=== PATIENT | female | born 1955 | race Caucasian/White ===

== ENCOUNTER 2019-03-30 14:13 | Emergency (ER) | payer OTHER ==
[~2019-03-30] VITALS: Ht 165.1 cm; Wt 60.8 kg
[2019-03-30] MEDS ORDERED: Synthroid88 MCG PO (15:19)
[2019-03-30] MEDS ORDERED: BUPR75 PO (15:19)
[2019-03-30] MEDS ORDERED: Prozac20 MG PO (15:19)
[2019-03-30] MEDS ORDERED: FERSU90EL (15:20)
[2019-03-30] MEDS ORDERED: METF500 PO (15:20)
[2019-03-30] MEDS ORDERED: Amaryl1 MG (15:20)
[2019-03-30] MEDS ORDERED: Ultram50 MG PO (16:15)
== END 2019-03-30 16:28 | disposition home or self-care (01) ==
LOC: ER 14:13
DX: S09.90XA Unspecified injury of head, initial encounter (principal); S16.1XXA Strain of muscle, fascia and tendon at neck level, initial encounter; S39.012A Strain of muscle, fascia and tendon of lower back, initial encounter; F41.9 Anxiety disorder, unspecified; E11.9 Type 2 diabetes mellitus without complications; Z88.5 Allergy status to narcotic agent; Z79.899 Other long term (current) drug therapy; Z79.84 Long term (current) use of oral hypoglycemic drugs; V49.9XXA Car occupant (driver) (passenger) injured in unspecified traffic accident, initial encounter
CPT/HCPCS: 70450; 72100; 72125; 96374; 96375; 99284-25; A9270-GY; J2405; J3010

== ENCOUNTER 2023-07-18 09:13 | Inpatient (IN) | payer MEDICARE, OTHER ==
[~2023-07-18] VITALS: Ht 152.4 cm; Wt 78.8 kg
[2023-07-18] VITALS (19 sets, daily range): BP systolic 89–119; BP diastolic 42–67
[~2023-07-18 09:13] MED LIST: Amaryl1 MG; BUPR75 PO; EUTHYROX50 MCG PO; FERSU90EL; METF500 PO; Prozac20 MG PO; Ultram50 MG PO
[2023-07-18] MEDS ORDERED: NS 1,000 ML IV SCH ×2 (09:35→10:35)
[2023-07-18 09:50] LABS: Hematocrit 37.3 % (33.0-51.0); Hemoglobin 12.4 g/dL (11.5-16.0); Mean Corpuscular HGB 31.3 pg (26.0-34.0); Mean Corpuscular HGB Conc 33.2 g/dL (31.5-36.5); Mean Corpuscular Volume 94 fL (80-100); Mean Platelet Volume 8.9 fL (9.1-12.4); Platelet Count 273 K/mm3 (150-400); RDW Standard Deviation 48.9 fL (35.1-46.3); Red Blood Cell Count 3.96 M/mm3 (3.80-5.20); White Blood Cell Count 35.17 K/mm3 (4.00-11.30)
[2023-07-18 10:14] LABS: Albumin, Blood 2.6 g/dL (3.4-5.0); Albumin/Globulin Ratio 0.6 (0.8-1.8); Bilirubin, Direct 0.9 mg/dL (0.0-0.3); Bilirubin, Indirect 0.8 mg/dL (0.1-0.7); Bilirubin, Total 1.7 mg/dL (0.1-1.0); Bun/Creatinine Ratio 25.6 (12.0-20.0); Calcium, Blood 8.3 mg/dL (8.5-10.1); Creatinine, Blood 1.25 mg/dL (0.40-1.00); Globulin, Blood 4.5 g/dL (2.2-4.0); Magnesium, Blood 1.9 mg/dL (1.6-2.4); Phosphorus, Blood 3.1 mg/dL (2.5-4.9); Potassium, Blood 3.4 mmol/L (3.5-5.5); Total Protein, Blood 7.1 g/dL (6.4-8.2)
[2023-07-18 10:18] LABS: BAND PERCENT MAN 6 % (0-8); BASOPHILS PERCENT MAN 0 % (0-2); EOSINOPHILS PERCENT MAN 0 % (0-6); LYMPHOCYTES ABSOLUTE MAN 0.35 K/mm3 (0.84-5.20); LYMPHOCYTES PERCENT MAN 1 % (21-46); MONOCYTES PERCENT MAN 0 % (4-13); NEUTROPHILS ABSOLUTE MAN 34.81 K/mm3 (1.96-9.15); SEG NEUTROPHILS PERCENT MAN 93 % (41-73); TOTAL CELLS COUNTED 100
[2023-07-18] MEDS ORDERED: Piperacillin/Tazobactam Sod 3.375 GM in NS 100 ML IV ONE (10:30)
[2023-07-18 10:35] LABS: Influenza A, PCR NEGATIVE (NEGATIVE); Influenza B, PCR NEGATIVE (NEGATIVE); Resp Syncytial Virus, PCR NEGATIVE (NEGATIVE); SARS-Cov-2 (COVID-19) PCR, MMC NEGATIVE (NEGATIVE)
[2023-07-18 10:46] LABS: Source, Urine Straight Cath
[2023-07-18 10:48] LABS: Appearance, Urine Hazy (Clear); Bilirubin, Urine Neg (Neg); Blood, Urine 4+ (Neg); Color, Urine Yellow (P-Yellow); Glucose Qualitative, Urine Neg (Neg); Ketones, Urine 1+ (Neg); Leukocyte Esterase, Urine 1+ (Neg); Nitrite, Urine Neg (Neg); Protein, Urine 3+ (Neg); Specific Gravity, Urine 1.025 (1.003-1.022); Urobilinogen, Urine 1+ (Normal)
[2023-07-18 10:59] LABS: Bacteria Many /hpf; Squamous Epithelial Cells Many /hpf (Few)
[2023-07-18 11:03] LABS: Base Excess Venous 6.4 mmol/L; Bicarbonate Venous 28.5 mmol/L (24.0-30.0); PCO2 Venous 53.8 mmHg (38-42); pH Blood Venous 7.38 (7.34-7.37)
[2023-07-18] MEDS ORDERED: Lactated Ringer's 1,000 ML IV SCH (12:35)
[2023-07-18] MEDS ORDERED: Acetaminophen 325 MG TABLET PO PRN (12:35)
[2023-07-18] MEDS ORDERED: Potassium Chloride 20 MEQ TabCR PO ONE (14:30)
[2023-07-18] MEDS ORDERED: Lactated Ringer's 1,000 ML IV ONE (15:00)
[2023-07-18 15:04] LABS: U Amphetamine Screen DETECTED; U Barbituate Screen Not Detected; U Benzodiazapine Screen Not Detected; U Buprenorphine Screen Not Detected; U Cannabinoids Screen Not Detected; U Cocaine Screen Not Detected; U Methadone Screen Not Detected; U Methamphetamine Screen DETECTED; U Opiates Screen Not Detected; U Oxycodone Screen Not Detected; U Phencyclidine Screen Not Detected
--- NOTE | 2023-07-18 15:28 | NUR ---
PT ARRIVED TO PCU ABOUT 1400. AMANDA DE OLIVEIRA RN AND GOSIA CROCKETT RN HELPED SETTLE THE PT IN THE ROOM WHEN SHE ARRIVED. WHEN I CAME INTO THE ROOM I STEPPED IN AND SAW THE PT WAS HAVING A LOW BLOOD PRESSURE, WAS MOTTLED IN ALL EXTREMITIES GOING INTO HER TRUNK, AND SHE WAS SATURATING 80% ON 15LNC. AMANDA RN AND NAKIA DUBOSE STATED THE PT WAS NOT MOTTLED IN HER UPPER EXTREMITIES WHEN SHE ARRIVED TO PCU. THIS WAS WORSENING RAPIDLY. I CALLED CHAYO FROM RT AND HAD HER COME TO THE ROOM. I ENDED PLACING THE PT ON NONREABREATHER AND 15L HFNC. THE PT WAS SATURATING 86-90% ON BOTH. DURINIG THIS I GOT A CALL FROM LAB THAT THE PT'S LACTIC ACID WAS TRENDING UP TO 3.6 DESPITE FLUID BOLUS' IN THE ED. WE CALLED DR. ANN AND GOT AN ORDER FOR BIPAP AND A 5OOCC LR BOLUS. DR. ANN WANTED TO BE NOTIFIED IF THE PT'S MAP DROPPED BELOW 65. WITH THE BOLUS INFUSING THE PT'S BLOOD PRESSURE CONTINUED TO GET SOFTER, THE PT KEPT SAYINIG "I AM DYING" "I DONT WANT TO ", HER RESPIRATIONS WERE UP IN THE 30'S-40'S. DR. ANN WANTED THE PT IN ICU, W/ PRESSORS, AND WANTED THE ECHO DONE STAT. WE TRANSFERED THE PT TO ICU 09 AND CARE WAS HANDED OFF TO MATT GRAHAM RN. THE PT'S MOTHER WAS NOTIFIED.
[2023-07-18] MEDS ORDERED: Albuterol 2.5 MG/3 ML VIAL INH PRN (15:50)
[2023-07-18 15:51] LABS: PCO2 Arterial 46.2 mmHg (35-45); PO2 Arterial 70.9 mmHg (80-100); pH Blood Arterial 7.38 (7.35-7.45)
--- NOTE | 2023-07-18 15:53 | NUR ---
ASSUMED CARE PATIENT ARRIVED TO ICU VIA BED AT 1517. BEDSIDE SHIFT REPORT RECEIVED FROM GRACY ALFARO. PATIENT ON BIPAP 14/7 FIO2 75%. UNABLE TO OBTAIN SPO2 READING ON FINGER, NOSE, OR EAR. PATIENT HAS DIFFUSE MOTTLING ON ALL EXTREMITIES, BUT IS SPEAKING IN FULL SENTENCES/ANSWERING QUESTIONS. CALL MADE TO DR. ANN AND ORDER OBTAINED FOR STAT ABG. 500ML LR BOLUS INFUSING AT TIME OF ARRIVAL AND FINISHED SHORTLY AFTER-LR @ 100ML/HR STARTED AFTER BOLUS. BP SHOWS MAPS GREATER THAN 65 AND SBP GREATER THAN 100. NO BELONGINGS WITH PATIENT AT THE TIME OF ARRIVAL TO ICU. ECHO COMPLETED AT BEDSIDE AFTER ARRIVING.
[2023-07-18] MEDS ORDERED: Piperacillin/Tazobactam Sod 3.375 GM in NS 100 ML IV SCH (16:00)
[2023-07-18] MEDS ORDERED: Insulin Regular 100 UNIT/ML 10ML Vial SC SCH (16:30)
[2023-07-18] MEDS ORDERED: Levothyroxine Sodium 100 MCG Vial IV SCH (17:00)
--- NOTE | 2023-07-18 18:38 | NUR ---
Pt. is resting in bed but reponds when I enter the room. Pt. is pretty somnolent so the visit is short. Pt. did verbally request this neon sign mechanic contact her dry cleaner apprentice. Prayed with Pt. Pt. verbalized gratitude for the spiritual care visit. Called her pastoral staff. Will remain available to Pt.
--- NOTE | 2023-07-18 20:00 | NUR ---
ASSUMED CARE OF PATIENT AT 1900. BEDSIDE REPORT FROM MATT. PATIENT DROWSY BUT EASILY AWAKENED. A&O x4. PATIENT ON AIRVO AT 50/60% AND MAINTAINING SPO2 >92%. DIFFICULTIES OBTAINING SPO2 READINGS. LUNG SOUNDS CLEAR BUT DIMINISHED IN BASES. PT HAS A MOIST NONPRO DUCTIVE COUGH. MOTTLED BILAT LOWER EXTREMITIES UP TO KNEE LEVEL. FEET FEEL COOL TO TOUCH. CAP REFIL LESS THAN 3 SECONDS IN BOTH FEET. UPPER EXTREMITIES WARM. PULSES PRESENT IN ALL EXTREMITIES, RIGHT RADIAL AND PEDAL PULSE STRONGER IN COMPARISON TO LEFT SIDE. SR ON MONITOR WITH HR IN 90s. PATIENT INCONTINENT AT START OF SHIFT, BED BATH AND LINEN CHANGE COMPLETE. PUREWICK PLACED. PATIENT ASKED FOR FOOD, TOLERATED JELLO WELL HOWEVER SHE WOULD DESAT TO 80s WHILE EATING.
[2023-07-18 20:47] LABS: PO2 Arterial 52.8 mmHg (80-100); pH Blood Arterial 7.41 (7.35-7.45)
[2023-07-18] MEDS ORDERED: Lactobacil 2-S.Thermo-Bifido 1 1 Cap PO SCH (21:00)
[2023-07-18] MEDS ORDERED: Ondansetron HCl 2 MG / ML 2ML Vial IV PRN (22:20)
--- NOTE | 2023-07-18 22:54 | NUR ---
PT UPDATE: SPOKE WITH STEFANO REGARDING PT INCREASE IN OXYGEN DEMAND AND ABG RESULTS; WILL TRIAL PT BACK ON BIPAP AND INITIATE PRECEDEX GTT AT THIS TIME.
--- NOTE | 2023-07-18 23:20 | NUR ---
UPDATE OXYGEN REQUIREMENTS ON AIRVO TITRATED UP TO 80%. PATIENT COMPLINING OF DYSPNEA AND SOB. AT THIS TIME PLACED BACK ON BIPAP WITH SETTINGS 14/7, FIO2 70%. PATIENT NOW RESTING AND TOLERATING BIPAP. PRECEDEX INITIATED AT 2150 AT 0.2 MCG/KG/HR BUT PATIENT VERY SENSITIVE TO MEDICATION. UNABLE TO TOLERATE, PRECEDEX PLACED ON STANDBY.
[2023-07-19] VITALS (52 sets, daily range): BP systolic 71–118; BP diastolic 38–84
[2023-07-19 04:06] LABS: Hematocrit 29.5 % (33.0-51.0); Hemoglobin 9.8 g/dL (11.5-16.0); Mean Corpuscular HGB 31.5 pg (26.0-34.0); Mean Corpuscular HGB Conc 33.2 g/dL (31.5-36.5); Mean Corpuscular Volume 95 fL (80-100); Mean Platelet Volume 8.9 fL (9.1-12.4); Platelet Count 220 K/mm3 (150-400); RDW Coefficient Variation 14.1 % (11.7-14.2); RDW Standard Deviation 49.1 fL (35.1-46.3); Red Blood Cell Count 3.11 M/mm3 (3.80-5.20); White Blood Cell Count 23.69 K/mm3 (4.00-11.30)
[2023-07-19 04:22] LABS: Calcium, Blood 7.9 mg/dL (8.5-10.1); Creatinine, Blood 1.13 mg/dL (0.40-1.00); Potassium, Blood 3.4 mmol/L (3.5-5.5)
[2023-07-19 04:38] LABS: BAND PERCENT MAN 13 % (0-8); BASOPHILS PERCENT MAN 0 % (0-2); EOSINOPHILS PERCENT MAN 0 % (0-6); LYMPHOCYTES ABSOLUTE MAN 0.71 K/mm3 (0.84-5.20); LYMPHOCYTES PERCENT MAN 3 % (21-46); MONOCYTES ABSOLUTE MAN 0.71 K/mm3 (0.16-1.47); MONOCYTES PERCENT MAN 3 % (4-13); NEUTROPHILS ABSOLUTE MAN 22.26 K/mm3 (1.96-9.15); SEG NEUTROPHILS PERCENT MAN 81 % (41-73); TOTAL CELLS COUNTED 100
[2023-07-19] MEDS ORDERED: Potassium Chloride 40 MEQ in NS 250 ML IV ONE (04:55)
[2023-07-19] MEDS ORDERED: Calcium Gluconate 10% 1,000 MG in NS 50 ML IV ONE (05:00)
--- NOTE | 2023-07-19 05:53 | NUR ---
SHIFT SUMMARY AT 0230 PATIENT WAS PUT BACK ON AIRVO AT 50/70% AND HAS MAINTAINED SPO2 88-92%. REMAINED DIFFICULT TO GET A CONTIUMOUS SPO2 READING. MOTTLING IN BLE IMPROVED THROUGHOUT SHIFT. PURPLE DISCOLORATION ONLY PRESENT ON ANKLES AND FEET. PATIENT COMPLAINED OF CHRONIC RIGHT HAND/WRIST PAIN DUE TO METAL PLATE IN HER WRIST. PAIN RELIEVED BY REPOSITIONING AND WARM COMPRESSES. BLOOD PRESSURE SOFT SBP IN THE 90s WITH MAP OF >65. MORNING LABS CAME BACK POTASSIUM CLORIDE AND CALCIUM GLUCONATE REPLACEMENT ORDERED.
[2023-07-19] MEDS ORDERED: Levothyroxine Sodium 0.125 MG Tab PO SCH (06:00)
[2023-07-19] MEDS ORDERED: Enoxaparin 40 MG/0.4 ML SYR SC SCH (09:00)
--- NOTE | 2023-07-19 17:48 | NUR ---
SHIFT SUMMARY PT IS A/O, APPRECIATIVE OF CARE AND STATES SHE FEELS "SO MUCH BETTER". SR, BP SOFT BUT MAP > 65. ON AIRVO 45 LITERS/60%. PT HAS STRONG LOOSE COUGH, IS NOT BRINGING UP SPUTUTM. APPETITE GOOD, EATING 75% OF MEALS, SWALLOWS WITHOUT DIFFICULTY, NO NAUSEA, NO BM THIS SHIFT. INCONTINENT OF URINE, PUREWICK IN PLACE WITH GOOD URINE OUTPUT. COMPLETE BED CHANGE AND BATH DUE TO INCONTINENCE. SKIN UNCHANGED. MOTTLING GREATLY IMPROVED. PIV X1 TO RIGHT AC, PG X1 TO RIGHT UPPER ARM, BOTH INFUSING AND WITHDRAWING BLOOD WELL. MULTIPLE SPIRITUAL CARE VISITS FROM [facility] AND FROM HOME [facility]. POC ONGOING.
[2023-07-19] MEDS ORDERED: Vancomycin HCL 1,000 MG in NS 100 ML IV SCH (18:00)
--- NOTE | 2023-07-19 18:20 | NUR ---
Spiritual Care Visit. Pt. is awake in bed and is eating orange sherbert when she welcomes my visit. Pt. is pleasant and verbally shares how meaningful it was to have her corn cooker visit earlier this morning. Considered matters of hema and belief. Pt. verbalizes the signicant meaning that her spiritual support has been. Took the Pts. hand and prayed with the Pt. Pt. verbalized gratitude for not only the spiritual care visit, but the medical care she has been given by the staff.
--- NOTE | 2023-07-19 21:00 | NUR ---
ASSUMPTION OF CARE ASSUMED CARE OF PATIENT AT 1900. REPORT FROM GRACY ASHLEY. PATIENT REMAINS ON AIRVO AT 45/60% WITH BIPAP AVILABLE IF NEEDED. SPO2 90-94%. PT CURRENTLY SITTING UP IN BED EATING DINNER. ZOSYN GTT INFUSING. PT HAS A FLUTTER VALVE AND IS ENCOURAGED TO USE IT. BLE MOTTILING CONTINUES TO IMPROVE. PULES PRESENT IN ALL EXTREMITIES. PATIENT HAS FREQUENT NONPRODUCTIVE COUGHS, COMPLAINS OF DYSPNEA DURING COUGH FITS.
[2023-07-20] VITALS (28 sets, daily range): BP systolic 96–141; BP diastolic 47–84
[2023-07-20] MEDS ORDERED: Guaifenesin/Dextromethorphan Syrup 5 ML UDC PO PRN (02:00)
[2023-07-20 04:11] LABS: BASOPHILS ABSOLUTE AUTO 0.07 K/mm3 (0.00-0.23); BASOPHILS PERCENT AUTO 1 % (0-2); EOSINOPHILS ABSOLUTE AUTO 0.04 K/mm3 (0.00-0.68); EOSINOPHILS PERCENT AUTO 0 % (0-6); Hematocrit 30.7 % (33.0-51.0); Hemoglobin 9.8 g/dL (11.5-16.0); IMMATURE GRAN ABSOLUTE AUTO 0.42 K/mm3 (0.00-0.10); IMMATURE GRAN PERCENT AUTO 3 % (0-1); LYMPHOCYTES ABSOLUTE AUTO 1.11 K/mm3 (0.84-5.20); LYMPHOCYTES PERCENT AUTO 8 % (21-46); MONOCYTES ABSOLUTE AUTO 0.84 K/mm3 (0.16-1.47); MONOCYTES PERCENT AUTO 6 % (4-13); Mean Corpuscular HGB 31.3 pg (26.0-34.0); Mean Corpuscular HGB Conc 31.9 g/dL (31.5-36.5); Mean Corpuscular Volume 98 fL (80-100); Mean Platelet Volume 9.1 fL (9.1-12.4); NEUTROPHILS ABSOLUTE AUTO 11.22 K/mm3 (1.96-9.15); NEUTROPHILS PERCENT AUTO 82 % (41-73); Platelet Count 224 K/mm3 (150-400); RDW Coefficient Variation 14.4 % (11.7-14.2); RDW Standard Deviation 52.4 fL (35.1-46.3); Red Blood Cell Count 3.13 M/mm3 (3.80-5.20)
[2023-07-20 04:36] LABS: Bun/Creatinine Ratio 20.3 (12.0-20.0); Calcium, Blood 8.3 mg/dL (8.5-10.1); Creatinine, Blood 0.99 mg/dL (0.40-1.00); Phosphorus, Blood 1.9 mg/dL (2.5-4.9); Potassium, Blood 3.7 mmol/L (3.5-5.5)
--- NOTE | 2023-07-20 05:55 | NUR ---
SHIFT SUMMARY NO ACUTE CHANGES. VSS THOUGHOUT THE SHIFT. PT OCCASIONALLY DESATURATES WHEN SLEEPING AND COUGHING. PT REMAINS A&O x 4. OFFER PT BIPAP WHEN COMPLAINING OF SOB. PT REFUSED, EDUCATED ON RISKS AND VERBALIZES UNDERSTANDING. BED LOWERED AND CALL LIGHT IN REACH
[2023-07-20] MEDS ORDERED: Potassium Phosphate Dibasic 30 MM in Dextrose 5% 500 ML IV ONE (06:15)
--- NOTE | 2023-07-20 07:14 | NUR ---
ASSUMED CARE OF PT AT 0700 BEDSIDE REPORT RECEIVED FROM GRACY HARDING. PT IS A/O, PLEASANT AND COOPERATIVE. SR, BP WNL. AIRVO 45 L/ 70% TO MAINTAIN 02 SAT > 94%. LUNGS COARSE, LOOSE COUGH, ENCOURAGED FLUTTER VALVE. APPETITE GOOD, PT EATS SMALL AMOUNTS AT A TIME SLOWLY DUE TO GASTRIC BYPASS HISTORY. NO NAUSEA. URINARY INCONTINENCE, PUREWICK IN PLACE. SKIN INTACT. PIV RAC, PG RANDY, BOTH SL. NO FAMILY AT BEDSIDE. POC ONGOING.
[2023-07-20 17:49] LABS: Vancomycin, Trough 6.4 ug/mL (5.0-10.0)
[2023-07-20] MEDS ORDERED: Vancomycin HCL 750 MG in NS 100 ML IV SCH (18:00)
--- NOTE | 2023-07-20 18:10 | NUR ---
SHIFT SUMMARY PT IS A/O, NEEDS ENCOURAGEMENT AT TIMES BUT OVERALL COOPERATIVE WITH CARE. SR, BP WNL. LOOSE COUGH, LUNGS CLEAR TO COARSE WITH DIMISHED BASES. AIRVO AT 40 LITERS AND 70% TO MAINTAIN O2 SAT > 90%. DENIES NAUSEA, NO BM, BS HYPOACTIVE, EATING APPROX 75% OF ALL MEALS. NO AC INSULIN COVERAGE NEEDED. PUREWICK IN PLACE MOST OF THE DAY, BRIEF PLACED THIS EVENING WITHOUT PUREWICK. SKIN UNCHANGED, INTERMITTENT MOTTLING IN BILAT LOWER EXTREMETIES, PT STATES THIS IS HER BASELINE. PIV LEFT AC, PG RIGHT UPPER ARM, BOTH SL, BOTH WITHDRAW BLOOD WELL. NO FAMILY AT BEDSIDE. PT HAS CALLED MOTHER AND FRIEND ANTONY WELL AND LANDLORD TO UPDATE THEM ON HER CONDITION. POC ONGOING.
--- NOTE | 2023-07-20 22:07 | NUR ---
ASSUMPTION OF CARE ASSUMED CARE OF PATIENT AT 1900. PT ON AIRVO AT 40/70%. PATIENT WILLING TO GO ON BIPAP IF NEEDED. SP02 88-90%. PT DESAT WITH EXERTION AND COUGHING. PT DESAT WHEN SLEEPING, FREQUENT COACHING FOR DEEP BREATHING. PT HAS A CONGESTED PRODUCTIVE COUGH, MEDICATED PER EMAR. A&Ox4 BUT DROSWY, EASILY WAKES UP. HR 80s, SBP 110s-120s. SCATTERED MOTTLING THROUGHOUT BLEs. PULSES PRESENT IN ALL EXTREMITIES.
[2023-07-20] MEDS ORDERED: Docusate Sodium 100 MG Cap PO PRN (22:20)
[2023-07-20] MEDS ORDERED: Sennosides 8.6 MG Tab PO PRN (22:25)
[2023-07-21] VITALS (22 sets, daily range): BP systolic 109–146; BP diastolic 53–89
[2023-07-21 03:26] LABS: BASOPHILS ABSOLUTE AUTO 0.04 K/mm3 (0.00-0.23); BASOPHILS PERCENT AUTO 0 % (0-2); EOSINOPHILS ABSOLUTE AUTO 0.06 K/mm3 (0.00-0.68); EOSINOPHILS PERCENT AUTO 1 % (0-6); Hematocrit 32.8 % (33.0-51.0); Hemoglobin 10.2 g/dL (11.5-16.0); IMMATURE GRAN ABSOLUTE AUTO 0.43 K/mm3 (0.00-0.10); IMMATURE GRAN PERCENT AUTO 4 % (0-1); LYMPHOCYTES ABSOLUTE AUTO 1.23 K/mm3 (0.84-5.20); LYMPHOCYTES PERCENT AUTO 13 % (21-46); MONOCYTES ABSOLUTE AUTO 0.77 K/mm3 (0.16-1.47); MONOCYTES PERCENT AUTO 8 % (4-13); Mean Corpuscular HGB 30.9 pg (26.0-34.0); Mean Corpuscular HGB Conc 31.1 g/dL (31.5-36.5); Mean Corpuscular Volume 99 fL (80-100); Mean Platelet Volume 9.2 fL (9.1-12.4); NEUTROPHILS ABSOLUTE AUTO 7.26 K/mm3 (1.96-9.15); NEUTROPHILS PERCENT AUTO 74 % (41-73); Platelet Count 243 K/mm3 (150-400); RDW Coefficient Variation 14.3 % (11.7-14.2); RDW Standard Deviation 52.6 fL (35.1-46.3); White Blood Cell Count 9.79 K/mm3 (4.00-11.30)
[2023-07-21 03:47] LABS: Calcium, Blood 8.4 mg/dL (8.5-10.1); Creatinine, Blood 0.67 mg/dL (0.40-1.00); Magnesium, Blood 1.9 mg/dL (1.6-2.4); Phosphorus, Blood 2.2 mg/dL (2.5-4.9); Potassium, Blood 3.9 mmol/L (3.5-5.5)
[2023-07-21] MEDS ORDERED: Potassium Phosphate Dibasic 30 MM in Dextrose 5% 500 ML IV ONE (04:35)
--- NOTE | 2023-07-21 05:37 | NUR ---
SHIFT SUMMARY NO ACUTE CHANGES OVERNIGHT. VSS STABLE. 02 SAT 90-95%. PT COMPLAINED OF CHEST PRESSURE SECONDARY TO SOB, PT AGREED TO SWITCH OVER TO BIPAP. CURRENTLY AT 01/04, FI02 70%. PATIENT BECOMES ANXIOUS WITH DYSPNEA AND RECOVERS WITH COACHING THROUGH DEEP BREATHING. PT WAS TOO FATIGUED TO AMBULATE TO BEDSIDE COMMODE, PT PLACED ON BED LEWIS FOR BM. ELECTOLYES REPLACED THIS MORNING. PT RESTING IN BED AT THIS TIME. BED LOWERED. CALL LIGHT IN REACH.
--- NOTE | 2023-07-21 07:55 | NUR ---
ASSUMED CARE OF PT AT 0700 BEDSIDE REPORT RECIEVED FROM GRACY HARDING. PT IS RESTING. SR, BP WNL, ON CONTINUOUS CARDIAC MONITORING. BIPAP 10/6 60% IN PLACE ALL NIGHT. PT HAS BEEN ABLE TO SLEEP WELL ON THIS WITH IMPROVED O2 SATURATIONS AND EASE OF BREATHING. LUNGS CLEAR/DIM. GOOD APPETITE, BLOOD SUGARS HAVE BEEN WELL CONTROLLED ON CARB CONSISTENT DIET. PT EATS SLOWLY DUE TO HISTORY OF GASTRIC BYPASS. INCONTINENT OF URINE, BRIEF IN PLACE. SKIN UNCHANGED, HAS INTERMITTENT MOTTLING ON LOWER EXTREMETIES. PG TO RIGHT UPPER ARM, PIV TO LEFT AC, BOTH WITHDRAW BLOOD AND FLUSH WELL. NO FAMILY AT BEDSIDE. PT MAKES CALLS TO MOTHER TO UPDATE ON CONDITION. POC ONGOING.
[2023-07-21 17:39] LABS: Vancomycin, Trough 11.3 ug/mL (5.0-10.0)
[2023-07-21] MEDS ORDERED: Vancomycin HCL 1,000 MG in NS 100 ML IV SCH (18:00)
--- NOTE | 2023-07-21 19:40 | NUR ---
SHIFT SUMMARY PT REMAINS A/OX4. SR, BP WNL. ON CONTINUOUS CARDIAC MONITORING. SPENT MOST OF THE SHIFT ON BIPAP, ONLY ON AIRVO FOR MEALS. FIO2 TITRATED DOWN TO 60% ON BIPAP. LOOSE COUGH, NON-PRODUCTIVE. APPETITE POOR TODAY. NO COVERAGE NEEDED FOR BLOOD GLUCOSE. INCONTINENT OF URINE, PUREWICK PLACED. SKIN UNCHANGED. PG TO RIGHT UPPER ARM WITHDRAWS BLOOD WELL BUT IS POSITIONAL. FLUSHES EASILY. PIV TO LEFT AC FLUSHES AND WITHDRAWS BLOOD WELL. AND HIS DAUGHTER TO BEDSIDE TODAY TO VISIT FOR A SHORT TIME. UPDATED ON CURRENT CONDITION. ALL QUESTIONS ANSWERED. POC ONGOING.
--- NOTE | 2023-07-21 20:25 | NUR ---
ASSUMED CARE PT IS DROWSY; ORIENTED X4. PT INITIALLY REQUESTED BREAK OFF BIPAP AT START OF SHIFT AND WENT TO AIRVO FOR 30~ MINUTES, BEFORE REQUESTING BIPAP BACK ON D/T INCREASING DYSPNEA. CURRENTLY ON BIPAP AND RESTING QUIETLY W/ SATS >92%. MAP >65 AND RATE IN THE 80'S.
[2023-07-22] VITALS (21 sets, daily range): BP systolic 100–152; BP diastolic 50–106
[2023-07-22 04:19] LABS: BASOPHILS ABSOLUTE AUTO 0.03 K/mm3 (0.00-0.23); BASOPHILS PERCENT AUTO 0 % (0-2); EOSINOPHILS ABSOLUTE AUTO 0.05 K/mm3 (0.00-0.68); EOSINOPHILS PERCENT AUTO 1 % (0-6); Hematocrit 30.4 % (33.0-51.0); Hemoglobin 9.7 g/dL (11.5-16.0); IMMATURE GRAN ABSOLUTE AUTO 0.46 K/mm3 (0.00-0.10); IMMATURE GRAN PERCENT AUTO 5 % (0-1); LYMPHOCYTES ABSOLUTE AUTO 1.25 K/mm3 (0.84-5.20); LYMPHOCYTES PERCENT AUTO 14 % (21-46); MONOCYTES ABSOLUTE AUTO 0.82 K/mm3 (0.16-1.47); MONOCYTES PERCENT AUTO 9 % (4-13); Mean Corpuscular HGB 31.2 pg (26.0-34.0); Mean Corpuscular HGB Conc 31.9 g/dL (31.5-36.5); Mean Corpuscular Volume 98 fL (80-100); NEUTROPHILS ABSOLUTE AUTO 6.55 K/mm3 (1.96-9.15); NEUTROPHILS PERCENT AUTO 72 % (41-73); Platelet Count 270 K/mm3 (150-400); RDW Standard Deviation 50.4 fL (35.1-46.3); Red Blood Cell Count 3.11 M/mm3 (3.80-5.20); White Blood Cell Count 9.16 K/mm3 (4.00-11.30)
[2023-07-22 04:34] LABS: Bun/Creatinine Ratio 22.3 (12.0-20.0); Calcium, Blood 8.8 mg/dL (8.5-10.1); Creatinine, Blood 0.67 mg/dL (0.40-1.00); Magnesium, Blood 1.9 mg/dL (1.6-2.4); Phosphorus, Blood 2.5 mg/dL (2.5-4.9); Potassium, Blood 3.8 mmol/L (3.5-5.5)
--- NOTE | 2023-07-22 06:09 | NUR ---
SHIFT SUMMARY PT SLEPT QUIETLY T/O MOST OF NIGHT W/ BIPAP ON. PT COMPLAINING OF NAUSEA D/T HUNGER, PT MOVED TO AIRVO AND GIVEN SANDWICH TO EAT, WHICH ALLEVIATED PT'S NAUSEA. PT IS NOW RESTING QUIETLY W/ BIPAP BACK ON. PT STATES SHE FEELS HOT; IS AFEBRILE AT THIS TIME. FAN GIVEN W/ COLD WASHCLOTH ON NECK (PT PLACED WASHCLOTH ON NECK). NO ACUTE EVENTS OVERNIGHT.
[2023-07-22] MEDS ORDERED: Levothyroxine Sodium 0.125 MG Tab PO SCH (08:21)
--- NOTE | 2023-07-22 13:51 | NUR ---
Spiritual care visit conducted. Patient is lying in bed and alert. RN Tonie helps the patient transition from Bipap to a canula so patient can interact more easily. Patient is immediately tearful about her "meth addiction" and the trouble that she has brought to her own life. She tells me how she start with the addiction when her S.O. Shweta some 20 yrs ago. She tells me that substance abuse is ruining her life, as are the people who she is doing meth with. She also talks at length about her connection with God and how she finds him in the [employer] churches, the , [employer] and [employer] churches. She currently is attending [employer] and watching on-line when she can't attend. This has been her only source of hope and strength. We discuss her spiritual journey, ways she may move toward an addiction free life and what she feels are the costs to not taking meth. I normalize her experience, and provide therapeutic listening, pastoral weight loss counselor, and prayer. I also provide reading glasses and a LARGE print Bible upon her request. Patient responded well and showed signs of inspired hope and of being encouraged in the strong beliefs she holds. I will continue to remain available to patient and family.
--- NOTE | 2023-07-22 14:49 | NUR ---
SHIFT SUMMARY PT A/O. SR, BP WNL. PRIMARILY ON BIPAP ALTHOUGH MAINTAINS 02 SAT ON AIRVO WHEN EATING. GOOD APPETITE, EATS SLOWLY DUE TO HISTORY OF GASTRIC BYPASS. DENIES NAUSEA. INCONTINENT OF URINE. PUREWICK WHEN IN BED, BRIEF IN PLACE WHEN IN THE CHAIR. TRANSFERED TO RECLINER FOR LUNCH. PT 1 PERSON ASSIST USING WALKER. TRANSFERED ON BIPAP, TRANSITIONED TO AIRVO WHEN IN THE CHAIR. PG TO RIGHT UPPER ARM, PIV TO LEFT AC. SL. REPORT GIVEN TO GRACY LEZAMA. POC ONGOING.
--- NOTE | 2023-07-22 18:22 | NUR ---
SHIFT SUMMARY ASSUMED CARE OF PATIENT AT APPROX. 1440, BEDSIDE SHIFT REPORT RECEIVED FROM DION DUBOSE. PATIENT WAS SITTING UP IN RECLINER AT THE START OF SHIFT, PROVIDER WOULD LIKE PATIENT TO BE UP OUT OF BED TWICE DAILY FOR TWO HOURS. PATIENT IS ALERT, ABLE TO FOLLOW COMMANDS AND COOPERATIVE WITH CARE. PATIENT WAS ON AIRVO WHILE UP IN RECLINER FOR MEALS, OTHERWISE ON BIPAP AT 12/18 35% FIO2. LUNG SOUNDS CLEAR/DIMINISHED. O2 SATS IN THE LOW 90'S. HEART RATE IN THE 80'S-90'S, SBP 130-140'S. PATIENT TRANSFERES FROM BED TO RECLINER WITH FWW AND TWO PERSON ASSIST, MOVES ALL EXTREMITIES WELL BUT IS WEAK. PATIENT IS INCONTINENT OF URINE, PUREWICK URINARY DEVICE PLACED BY RN. PATIENT CURRENTLY RESTING QUIETLY IN ROOM.
--- NOTE | 2023-07-22 19:15 | NUR ---
ASSUMPTION OF CARE: ASSUMED CARE OF PATIENT. PATIENT SLEEPING IN BED WITH BIPAP ON. SETTINGS 03/08//45%. SPO2 >94%. RR IN THE 20S. PATIENT ADAMANTLY REFUSES TO LET RN TAKE ANY OF HER JEWLERY OFF. PUREWICK IN PLACE WITH LIGHT YELLOW URINE IN THE COLLECTION CHAMBER. BLOOD PRESSURE STABLE WITH SBP IN THE 120S-130S. HR IN THE 80S. NO APPARENT ANXIETY AT THIS TIME.
--- NOTE | 2023-07-22 22:20 | NUR ---
CARDIAC AND RESPIRATORY STATUS: PATIENT REPORTED FEELING UNWELL THIS EVENING. PATIENT COUGHING AND REPORTS DISCOMFORT FROM THE COUGHING. PATIENT RECEIVED PRN TYLENOL AND ROBITUSSIN COUGH SYRUP. AFTER RECEIVING HER DAILY BATH, NOTED THAT PATIENT WAS EXPERIENCING PACS. PATIENT ASYMPTOMATIC. HR IN THE 70S. BLOOD PRESSURE STABLE. THIS RESOLVED AFTER ABOUT 15 MINUTES. ALSO NOTED THAT THE PATIENT WAS EXPERIENCING LOW TIDAL VOLUMES - AROUND 160 ML - 180 ML. NOTIFIED RT. PRESSURE INCREASED ON BIPAP TO 14. PATIENT'S VOLUMES INCREASED TO THE 300S.
[2023-07-22] MEDS ORDERED: NS 250 ML IV PRN (23:45)
[2023-07-23] VITALS (19 sets, daily range): BP systolic 92–143; BP diastolic 46–95
[2023-07-23 03:46] LABS: Base Excess Venous 14.9 mmol/L; Bicarbonate Venous 36.6 mmol/L (24.0-30.0); PCO2 Venous 58.9 mmHg (38-42); pH Blood Venous 7.43 (7.34-7.37)
[2023-07-23 03:48] LABS: Hematocrit 30.8 % (33.0-51.0); Hemoglobin 9.9 g/dL (11.5-16.0); Mean Corpuscular HGB 31.4 pg (26.0-34.0); Mean Corpuscular HGB Conc 32.1 g/dL (31.5-36.5); Mean Corpuscular Volume 98 fL (80-100); Mean Platelet Volume 9.4 fL (9.1-12.4); Platelet Count 320 K/mm3 (150-400); RDW Coefficient Variation 14.2 % (11.7-14.2); RDW Standard Deviation 50.4 fL (35.1-46.3); Red Blood Cell Count 3.15 M/mm3 (3.80-5.20); White Blood Cell Count 8.87 K/mm3 (4.00-11.30)
[2023-07-23 04:05] LABS: Bun/Creatinine Ratio 25.5 (12.0-20.0); Calcium, Blood 8.6 mg/dL (8.5-10.1); Creatinine, Blood 0.74 mg/dL (0.40-1.00); Phosphorus, Blood 3.4 mg/dL (2.5-4.9); Potassium, Blood 3.5 mmol/L (3.5-5.5)
[2023-07-23 04:32] LABS: BAND PERCENT MAN 8 % (0-8); BASOPHILS PERCENT MAN 0 % (0-2); EOSINOPHILS PERCENT MAN 0 % (0-6); LYMPHOCYTES ABSOLUTE MAN 1.95 K/mm3 (0.84-5.20); LYMPHOCYTES PERCENT MAN 22 % (21-46); METAMYELOCYTE ABSOLUTE MAN 0.08 K/mm3 (0.00-0.00); METAMYELOCYTE PERCENT MAN 1 % (0-0); MONOCYTES ABSOLUTE MAN 0.79 K/mm3 (0.16-1.47); MONOCYTES PERCENT MAN 9 % (4-13); MYELOCYTE ABSOLUTE MAN 0.08 K/mm3 (0.00-0.00); MYELOCYTE PERCENT MAN 1 % (0-0); NEUTROPHILS ABSOLUTE MAN 5.85 K/mm3 (1.96-9.15); PLASMA CELL ABSOLUTE MAN 0.08 K/mm3 (0.00-0.00); PLASMA CELLS PERCENT MAN 1 % (0-0); SEG NEUTROPHILS PERCENT MAN 58 % (41-73); TOTAL CELLS COUNTED 100
--- NOTE | 2023-07-23 06:11 | NUR ---
SHIFT SUMMARY: NEURO: PATIENT ALERT AND ORIENTED TO PLACE, SITUATION AND FOLLOWING DIRECTIONS. PATIENT ABLE TO MAKE HER NEEDS KNOWN. PATIENT USES THE CALL LIGHT AT TIMES AND CALLS OUT FOR ASSISTANCE AT TIMES. PATIENT MOVING ALL EXTREMITIES EQUALLY. RESPIRATORY: PATIENT STAYED ON THE BIPAP FOR MOST OF THE SHIFT (12/11//45%). PATIENT WILL TRANSITION TO AIRVO FOR MEALS/SNACKS. PATIENT SPO2 >92%. SEE NURSE'S NOTE ABOUT RESPIRATORY STATUS AT THE BEGINNING OF THE SHIFT. PATIENT HAS A PRODUCTIVE COUGH. CARDIAC: BLOOD PRESSURES STABLE IN THE 100S-130S. MAPS >65. HR IN THE 60-70S. PATIENT DENIES CHEST PAIN OR DISCOMFORT. GI/: PATIENT TOLERATING PO INTAKE WITHOUT NAUSEA OR GASTIC UPSET. PUREWICK IN PLACE. ATTENDS IN PLACE. URINE IS A CLEAR, LIGHT YELLOW. PSYCHSOCIAL: PATIENT ANXIOUS AT TIMES. PATIENT WILL CALL OUT FOR HELP OR ASK THE RN FREQUENTLY HOW SHE IS DOING. PATIENT IS REDIRECTABLE AND CALMABLE.
--- NOTE | 2023-07-23 07:00 | NUR ---
CARE ASSUMPTION DURING BEDSIDE SHIFT REPORT W LUCY DUBOSE THE PT IS LYING IN BED SLEEPING COMFORTABLY WEARING THE BIPAP MASK. PT'S BIPAP SETTINGS ARE 14/8 W 45% FIO2. PT HAS NS TKO AT 10ML/HR INFUSING INTO POWERGLIDE IN RUE. PT HAS PUREWICK IN PLACE DRAINING CLEAR YELLOW URINE. UPON AAKENING THE PT IS ALERT AND ORIENTED APPEARING MUCH BETTER THEN PREVIOUS DAYSHIFT. THE MOTTLING ON THE PT'S BLE'S IS MUCH IMPROVED. PT PLACED ON AIRVO 40L 30%FIO2 AND ASSISTED TO THE CHAIR FOR BREAKFAST. PT DENYING ANY PAIN OR NAUSEA AT THIS TIME. PT ABLE TO AMBULATE TO CHAIR W THE FWW AND MINIMAL ASSISTANCE. PT UP IN CHAIR EATING BREAKFAST DENYING ANY FURTHER NEEDS. MONITOR SHOWING SR 80'S. BP WNL AND STABLE. CALL LIGHT WITHIN REACH.
[2023-07-23] MEDS ORDERED: LORazepam 2 MG/ML 1ML Injection IV ONE (13:00)
--- NOTE | 2023-07-23 17:51 | NUR ---
DAY SHIFT SUMMARY PT HAS BEEN ALERT AND ORIENTED THIS SHIFT COMMUNICATING APPROPRIATELY W STAFF. PT VERY ANXIOUS AT TIMES NEEDING REASSURANCE ABOUT HER O2 STATUS. PT UP IN CHAIR FOR BRAKFAST AND LUNCH WEARING AIRVO 40L 30% FIO2 WHILE EATING AND AWAKE. PT WEARING BIPAP 14/8 35% FIO2 WHEN SLEEPING AND OCCASIONALLY UPON HER REQUEST WHEN SHE IS FEELING SOB. PT HAD CHEST CT THIS SHIFT AND PER MD ORDER WAS GIVEN 0.25 MG ATIVAN PRIOR TO GOING TO CT DUE TO HER INCREASING ANXIETY, PT TOLERATING CT WELL BUT HAS BEEN VERY DROWSY THE REST OF THE SHIFT SINCE RECIEVING THE ATIVAN. PT AWKAENING TO VOICE AND COMMUNICATING APPROPRIATELY BUT NOT MAINTAINING AWAKEFULLNESS TO SAFELY EAT HER DINNER SO MEAL SET ASIDE UNITIL THE PT IS MORE AWAKE. PT WEARING NON-REBREATHER 15L TO CHEST CT W RT AT BEDSIDE MAINTAINING SPO2 >94%, PT PLACED BACK ON BIPAP ONCE SHE WAS BACK TO HER ICU ROOM. PT'S MONITOR SHOWING SR 70'S-80'S THIS SHIFT. BP WNL AND STABLE. PT AFEBRILE. PT INCONTINENT OF URINE W SEVERAL LARGE INCONTINENT VOIDS THIS SHIFT. PT HAD 1 BM THIS SHIFT. PT CHANGED TO PCU STATUS THIS SHIFT. PT CURRENTLY RESTING IN BED STILL SLIGHTLY DROWSY ON THE BIPAP BUT DENYING ANY PAIN OR NAUSEA. WILL REPORT TO ONCOMING RN.
[2023-07-24] VITALS (7 sets, daily range): BP systolic 110–137; BP diastolic 63–81
--- NOTE | 2023-07-24 05:04 | NUR ---
SHIFT SUMMARY A/Ox3-4 AND COOPERATIVE WITH CARE. ANSWERS QUESTIONS APPROPRIATELY AND ABLE TO MAKE HER NEEDS KNOWN. NO ACUTE EVENTS OVERNIGHT. CARDIAC, REMAINS IN SR 70-80'S WITH NO REPORTS OF CP OR PRESSURE. SBP STABLE RANGING 110-130'S. RESPIRATORY, MAINTAINS SPO2 >90% ON 5-6L HiFLOW NC. INTERMITTENT USE OF BiPAP 14/8 35% WHEN AWAKE, WORE BiPAP WHEN ASLEEP. ENDORSES SOME SOB WHEN AT REST. GI/, CONTINUES TO BE INCONTINENT OF URINE. PURWICK IN PLACE WITH ATTENDS. CHANGED PRN TO KEEP C/D/I. Q2HR REPOSITIONING USED. NO NEW ORDERS AT THIS TIME, WILL REPORT TO ONCOMING RN. ARLETTE REYNA OF THIS NOTE.
[2023-07-24 05:35] LABS: Hematocrit 31.1 % (33.0-51.0); Hemoglobin 9.8 g/dL (11.5-16.0); Mean Corpuscular HGB 31.4 pg (26.0-34.0); Mean Corpuscular HGB Conc 31.5 g/dL (31.5-36.5); Mean Corpuscular Volume 100 fL (80-100); Mean Platelet Volume 9.4 fL (9.1-12.4); NRBC ABSOLUTE 0.02 K/mm3 (0.00-0.02); NRBC Auto 0.2 /100 WBC (0.0-0.2); Platelet Count 353 K/mm3 (150-400); RDW Coefficient Variation 14.5 % (11.7-14.2); RDW Standard Deviation 52.7 fL (35.1-46.3); Red Blood Cell Count 3.12 M/mm3 (3.80-5.20); White Blood Cell Count 8.52 K/mm3 (4.00-11.30)
[2023-07-24 06:08] LABS: Albumin, Blood 2.3 g/dL (3.4-5.0); Anion Gap 6 mmol/L (3-11); Blood Urea Nitrogen 23 mg/dL (8-24); Bun/Creatinine Ratio 33.9 (12.0-20.0); CO2, Blood 37 mmol/L (21-32); Calcium, Blood 8.6 mg/dL (8.5-10.1); Chloride, Blood 102 mmol/L (98-108); Creatinine, Blood 0.68 mg/dL (0.40-1.00); Glomerular Filtration Rate 97 (60-); Glucose, Blood 110 mg/dL (70-99); Potassium, Blood 3.7 mmol/L (3.5-5.5); Sodium, Blood 141 mmol/L (136-145)
[2023-07-24 06:16] LABS: BAND PERCENT MAN 6 % (0-8); BASOPHILS PERCENT MAN 0 % (0-2); EOSINOPHILS PERCENT MAN 0 % (0-6); LYMPHOCYTES ABSOLUTE MAN 1.36 K/mm3 (0.84-5.20); LYMPHOCYTES PERCENT MAN 16 % (21-46); MONOCYTES ABSOLUTE MAN 0.42 K/mm3 (0.16-1.47); MONOCYTES PERCENT MAN 5 % (4-13); NEUTROPHILS ABSOLUTE MAN 6.73 K/mm3 (1.96-9.15); SEG NEUTROPHILS PERCENT MAN 73 % (41-73); TOTAL CELLS COUNTED 100
[2023-07-24] MEDS ORDERED: Potassium Chloride 20 MEQ TabCR PO SCH (14:00)
[2023-07-24] MEDS ORDERED: Furosemide 10 MG/ML 4ML Vial IV SCH (14:00)
--- NOTE | 2023-07-24 15:45 | NUR ---
Spiritual care visit conducted. Patient is very uncomfortable today and is wiggling in her bed and grimacing her face. She tells me that she is not in pain but just feels very anxious. We talk about her fears about the fluid around her heart, about the environment that she will return to after she will d/c and the concerns about what maybe happening to her belongings while she is domiciled in the hospital. We talks about positive ways to manage worries that she can't control and we pull in her spirituality as we discuss mindfulness practices and prayer. I reinforced helpful attitudes and perspectives and provide therapeutic listening and prayer. Patient responded well and showed signs of greater peace.
--- NOTE | 2023-07-24 17:41 | NUR ---
Shift Summary Pt alert, oriented x2-3; anxious t/o shift. Pt resting in bed, assisted with repositioning. Pt on/off bipap and 6-9l o2 via nc t/o shift, pt requesting medications for coughing. No other acute changes noted. Will continue to monitor.
--- NOTE | 2023-07-24 17:48 | NUR ---
Shift Summary Pt alert, oriented x3-4; anxious and not cooperative with care at times. Pt resting in bed, assists with repositioning. Pt denies pain, chest pain/pressure, nausea, dizziness and numb/tingling. SOB with exertion or anxiety; spo2 >90% on 5-9l o2 via nc, pt requesting bipap for majority of the day; at times frequent requests for on/off, educated pt on need to wear. Tele sinus/sinus tach 90-100's, bp stable. Pt educated on use of call light, instead of calling out for assistance. Pt educated on need for bipap. Pt educated on coping skills. Other vss. No other acute changes noted. Will continue to monitor.
[2023-07-24] MEDS ORDERED: HyDROXyzine HCl 25 MG Tab PO ONE (23:30)
[2023-07-24] MEDS ORDERED: Ketorolac Tromethamine 15mg Vial IV ONE (23:30)
[2023-07-25 04:35] VITALS: BP 133/78
--- NOTE | 2023-07-25 04:48 | NUR ---
SHIFT SUMMARY. SHIFT HAS LARGELY BEEN UNREMARKABLE. PT AOX3-4, COOPERATIVE WITH CARE, ABLE TO MAKE NEEDS KNOWN. PT CAN BE VERY ANXIOUS AT TIMES BUT HAS BEEN ABLE TO RELAX AND SLEEP SINCE ATARAX ADMINISTRATION EARLIER IN SHIFT. CONTINUES TO SATURATE WELL ON 5 L O2 VIA NC, ONLY REQUIRING BEING TITRATED UP ONCE OR TWICE WITH TRANSFERRING TO COMMODE AND TURNING. VITALS HAVE BEEN STABLE. PT WAS COMPLAINING OF PAIN AND WAS DEMONSTRATING SIGNIFICANT ANXIETY EARLY IN SHIFT BUT OT TORADOL AND ATARAX WERE ADMINISTERED AND SINCE THAT TIME PT HAS BEEN ABLE TO RELAX AND SLEEP WELL. 1PA TRANSFER TO BEDSIDE COMMODE FOR BM. INCONTINENT OF URINE AT TIMES, PUREWICK IN PLACE. BED LOCKED IN LOWEST POSITION. CALL LIGHT LEFT WITHIN REACH. CONTINUING TO MONITOR.
[2023-07-25 08:17] VITALS: BP 103/53
[2023-07-25 12:14] VITALS: BP 125/69
[2023-07-25 12:14] LABS: BASOPHILS ABSOLUTE AUTO 0.06 K/mm3 (0.00-0.23); BASOPHILS PERCENT AUTO 1 % (0-2); EOSINOPHILS ABSOLUTE AUTO 0.06 K/mm3 (0.00-0.68); EOSINOPHILS PERCENT AUTO 1 % (0-6); Hematocrit 31.8 % (33.0-51.0); Hemoglobin 10.1 g/dL (11.5-16.0); IMMATURE GRAN ABSOLUTE AUTO 0.73 K/mm3 (0.00-0.10); IMMATURE GRAN PERCENT AUTO 7 % (0-1); LYMPHOCYTES ABSOLUTE AUTO 1.62 K/mm3 (0.84-5.20); LYMPHOCYTES PERCENT AUTO 16 % (21-46); MONOCYTES ABSOLUTE AUTO 0.64 K/mm3 (0.16-1.47); MONOCYTES PERCENT AUTO 7 % (4-13); Mean Corpuscular HGB 31.9 pg (26.0-34.0); Mean Corpuscular HGB Conc 31.8 g/dL (31.5-36.5); Mean Corpuscular Volume 100 fL (80-100); Mean Platelet Volume 9.1 fL (9.1-12.4); NEUTROPHILS PERCENT AUTO 69 % (41-73); NRBC ABSOLUTE 0.03 K/mm3 (0.00-0.02); NRBC Auto 0.3 /100 WBC (0.0-0.2); Platelet Count 426 K/mm3 (150-400); RDW Coefficient Variation 14.5 % (11.7-14.2); RDW Standard Deviation 52.3 fL (35.1-46.3); Red Blood Cell Count 3.17 M/mm3 (3.80-5.20); White Blood Cell Count 9.91 K/mm3 (4.00-11.30)
[2023-07-25 12:32] LABS: Albumin, Blood 2.7 g/dL (3.4-5.0); Anion Gap 4 mmol/L (3-11); Blood Urea Nitrogen 30 mg/dL (8-24); Bun/Creatinine Ratio 34.9 (12.0-20.0); CO2, Blood 41 mmol/L (21-32); Calcium, Blood 9.2 mg/dL (8.5-10.1); Chloride, Blood 99 mmol/L (98-108); Creatinine, Blood 0.86 mg/dL (0.40-1.00); Glomerular Filtration Rate 75 (60-); Glucose, Blood 121 mg/dL (70-99); Phosphorus, Blood 3.7 mg/dL (2.5-4.9); Potassium, Blood 3.7 mmol/L (3.5-5.5); Sodium, Blood 140 mmol/L (136-145)
[2023-07-25 12:46] LABS: BAND PERCENT MAN 3 % (0-8); BASOPHILS PERCENT MAN 0 % (0-2); EOSINOPHILS ABSOLUTE MAN 0.19 K/mm3 (0.00-0.68); EOSINOPHILS PERCENT MAN 2 % (0-6); LYMPHOCYTES ABSOLUTE MAN 1.28 K/mm3 (0.84-5.20); LYMPHOCYTES PERCENT MAN 13 % (21-46); METAMYELOCYTE ABSOLUTE MAN 0.09 K/mm3 (0.00-0.00); METAMYELOCYTE PERCENT MAN 1 % (0-0); MONOCYTES ABSOLUTE MAN 0.29 K/mm3 (0.16-1.47); MONOCYTES PERCENT MAN 3 % (4-13); NEUTROPHILS ABSOLUTE MAN 8.02 K/mm3 (1.96-9.15); SEG NEUTROPHILS PERCENT MAN 78 % (41-73); TOTAL CELLS COUNTED 100
[2023-07-25 16:24] VITALS: BP 112/57
--- NOTE | 2023-07-25 18:07 | NUR ---
AMA: PT COOPERATIVE W/CARE T/OUT THE DAY, ABLE TO MAKE NEEDS KNOWN. THIS AFTERNOON VERBALIZES INTENT TO GO HOME WHEN HER ARRIVES. EDUCATION PROVIDED, PROVIDER NOTIFIED, PT CONTINUES TO TALK ABOUT INTENT TO DEPART EVEN THOUGH IT WOULD BE AMA. PT'S AND LANDLORD ARRIVE, THIS RN PROVIDES EDUCATION ABOUT IMPORTANCE OF STAYING, PT STATES "OKAY, ONE MORE NIGHT" THEN LANDLORD STATES "I HAVE OXYGEN AT HOME". PT REVERTS BACK TO SAYING SHE IS LEAVING. CHARGE NURSE ATTEMPTS TO PROVIDE EDUCATION ABOUT BENEFIT OF STAYING, PT BEGINS TO SPEAK LOUDLY STATING "I DON'T WANT TO TALK ABOUT IT OR HEAR ABOUT IT ANYMORE". AMA PAPERWORK SIGNED BY PT. PT IS ESCORTED FROM UNIT BY VISITORS.
== END 2023-07-25 17:42 | disposition left against medical advice (07) | DRG 871 ==
LOC: ER 09:13 → ICUE 12:33 → PCU 12:33 → ICUE 15:15 → PCU 07-23 18:34
PROVIDERS: Emergency Medicine; Internal Medicine Critical Care Medicine; ADMIT Family Medicine
PROC: 3E03329 Introduction of Other Anti-infective into Peripheral Vein, Percutaneous Approach (ICD-10-PCS; principal; 2023-07-18)
PROC: 5A0935A Assistance with Respiratory Ventilation, Less than 24 Consecutive Hours, High Flow/Velocity Cannula (ICD-10-PCS; 2023-07-18)
PROC: 5A09357 Assistance with Respiratory Ventilation, Less than 24 Consecutive Hours, Continuous Positive Airway Pressure (ICD-10-PCS; 2023-07-18)
PROC: 3E033XZ Introduction of Vasopressor into Peripheral Vein, Percutaneous Approach (ICD-10-PCS; 2023-07-18)
DX: A40.9 Streptococcal sepsis, unspecified (principal); J18.9 Pneumonia, unspecified organism; J96.01 Acute respiratory failure with hypoxia; J96.02 Acute respiratory failure with hypercapnia; N17.9 Acute kidney failure, unspecified; I31.39 Other pericardial effusion (noninflammatory); N39.0 Urinary tract infection, site not specified; E87.20 Acidosis, unspecified; F43.12 Post-traumatic stress disorder, chronic; R94.5 Abnormal results of liver function studies; E87.6 Hypokalemia; I95.9 Hypotension, unspecified; E03.9 Hypothyroidism, unspecified; F41.9 Anxiety disorder, unspecified; Z53.29 Procedure and treatment not carried out because of patient's decision for other reasons; F32.A Depression, unspecified; F17.210 Nicotine dependence, cigarettes, uncomplicated; R65.20 Severe sepsis without septic shock; E86.0 Dehydration; N18.30 Chronic kidney disease, stage 3 unspecified; E11.22 Type 2 diabetes mellitus with diabetic chronic kidney disease; F15.10 Other stimulant abuse, uncomplicated; Z90.49 Acquired absence of other specified parts of digestive tract; Z88.5 Allergy status to narcotic agent; Z90.710 Acquired absence of both cervix and uterus; Z79.890 Hormone replacement therapy; Z79.84 Long term (current) use of oral hypoglycemic drugs; Z79.899 Other long term (current) drug therapy
CPT/HCPCS: 0241U; 36415; 36600; 51701; 71045; 71260; 80048; 80053; 80069; 80202; 81001; 82248; 82803; 82947; 83605; 83735; 83880; 84100; 84443; 84484; 85025; 87040; 87077; 87086; 87147; 87186; 93005; 93010; 93306; 93308; 93321; 94640; 94660; 94664; 94761; 94762; 96361-59; 96365-59; 97162; 97530; 99285-25; A9270; J0612; J1650; J1815; J1885; J1940; J2060; J2405; J2543; J3370; J3480; J7030; J7050; J7060; J7120; Q9967